=== PATIENT | male | born 2000 | race Caucasian/White ===

== ENCOUNTER 2019-05-08 16:26 | Emergency (ER) | payer OTHER ==
[~2019-05-08] VITALS: Ht 182.9 cm; Wt 77.3 kg
[2019-05-08 16:56] VITALS: BP 113/73; TEMP 97.5
[2019-05-08 18:15] VITALS: PULSE 84
== END 2019-05-08 18:17 | disposition home or self-care (01) ==
LOC: COL.ER 16:26
DX: M54.5 Low back pain (principal); Z88.1 Allergy status to other antibiotic agents

== ENCOUNTER 2019-11-15 23:08 | Emergency (ER) | payer OTHER ==
[~2019-11-15] VITALS: Ht 182.9 cm; Wt 72.7 kg
[2019-11-15 23:11] VITALS: BP 118/55
[2019-11-16] MEDS ORDERED: TAMIFLU 75MG75 MG PO (00:02)
[2019-11-16 00:18] VITALS: PULSE 107; TEMP 99.2
== END 2019-11-16 00:40 | disposition home or self-care (01) ==
LOC: COL.ER 23:08
DX: J11.1 Influenza due to unidentified influenza virus with other respiratory manifestations (principal); F17.210 Nicotine dependence, cigarettes, uncomplicated; Z88.1 Allergy status to other antibiotic agents; Z90.49 Acquired absence of other specified parts of digestive tract

== ENCOUNTER → 2023-09-03 | Outpatient (CLI) | payer OTHER ==
[~2023-09-03] MED LIST: TAMIFLU 75MG75 MG PO
== END ==
LOC: MHCPAIN 09:53
DX: M54.16 Radiculopathy, lumbar region (principal); M47.897 Other spondylosis, lumbosacral region; M48.061 Spinal stenosis, lumbar region without neurogenic claudication
CPT/HCPCS: G0463